=== PATIENT | male | born 1970 | race Caucasian/White ===

== ENCOUNTER 2019-12-31 19:36 | Inpatient (IN) | payer BC, OTHER ==
--- OUTSIDE RECORDS SUMMARY | 2019-12-31 19:38 | XMS ---
:1970 Author Organization [facility] Support Name Relationship Address Phone [facility] Unavailable [address] [place] [address] SHEBA SANTILLAN [address] [place] [address] Re-disclosure Warning The records that you are about to access may contain information from federally- assisted alcohol or drug abuse programs. If such information is present, then the following federally mandated warning applies: This information has been disclosed to you from records protected by federal confidentiality rules (42 CFR part 2). The federal rules prohibit you from making any further disclosure of this information unless further disclosure is expressly permitted by the written consent of the person to whom it pertains or as otherwise permitted by 42 CFR part 2. A general authorization for the release of medical or other information is NOT sufficient for this purpose. The Federal rules restrict any use of the information to criminally investigate or prosecute any alcohol or drug abuse patient.The records that you are about to access may contain highly sensitive health information, the redisclosure of which is protected by Article 27-F of the [facility] Public Health law. If you continue you may haveaccess to information: Regarding HIV / AIDS; Provided by facilities licensed or operated by the [facility] Office of Mental Health; or Provided by the [facility] Office for People With Developmental Disabilities. If such information is present, then the following [facility] mandated warning applies: This information has been disclosed to you from confidential records which are protected by state law. State law prohibits you from making any further disclosure of this information without the specific written consent of the person to whom it pertains, or as otherwise permitted by law. Any unauthorized further disclosure in violation of state law may result in a fine or long-term sentence or both. A general authorization for the release of medical or other information is NOT sufficient authorization for further disclosure. Insurance Providers Payer name Policy type Policy ID Covered Covered alliance party's Policy P rama / Coverage alliance party ID relationship to Ovalle Inf ormation type ovalle [place] [id number] [place] [id number] [place] 37 E[place] Results ID Date Data Source [id number] 12/28/2019 08:15:00 PM EDT [facility] Name Value Range Interpretation Code Description Data Maame rce(s) Supporting Document(s ) SARS-CoV-2 [facility] N gene Resp Ql KB+probe This lab was ordered by [facility] and reported by [facility]. ID Date Data Source [id number] 12/28/2019 01:08:00 PM EDT [facility] Name Value Range Interpretation Description Data Sup porting Code Source(s) Document(s ) 2019 Novel [facility] Coronavirus RNA Interpretation Unspecified Specimen Qualitative KB Probe Detection This lab was ordered by [id number] and reported by [facility]. Procedure
[2019-12-31 20:34] VITALS: BMI 30.5
--- NOTE | 2019-12-31 21:10 | HP ---
CIWA Score - Admission Criteria OASAS Guidelines: Admission for Medically Managed Detox: Requires at least one of the followin. CIWA greater than 12 2. Seizures within the past 24 hours 3. Delirium tremens within the past 24 hours 4. Hallucinations within the past 24 hours 5. Acute intervention needed for co occurring medical disorder 6. Acute intervention needed for co occurring psychiatric disorder 7. Severe withdrawal that cannot be handled at a lower level of care (continued vomiting, continued diarrhea, abnormal vital signs) requiring intravenous medication and/or fluids 8. Admission ROS BHS - HPI Chief Complaint: Here because I need help to stop this cycle of use. Allergies/Adverse Reactions: Allergies Allergy/AdvReac Type Severity Reaction Status Date / Time Penicillins Allergy Verified 12/31/19 20:58 History of Present Illness: 49 yo presents as a transfer from [facility]. Was admitted on Friday12/28/19 w/ neuro changes and opiate and Xanax use disorder. Discharged today and referred for rehab. Chest X-ray @ [facility] = normal. Denies seizures. DU: 0.0 UTOX: + THC/BZO Oxycodone use since age 46. States has been taking extra for about 1 year and supplementing prescription. Xanax use x 1 month - non prescribed. Alcohol - Socially - 2 drinks/week Denies Nicotine use. PMHx: HTN, elevated cholesterol, hip pain MHHx: Anxiety, Depression. Sees a MH Provider - has a new appt post discharge. Shx: Domiciled. Employed. Denies legal issues. Patient Name: Neo Banuelos Date: 1970 Address: [address] [place] [address] Sex: Male Rx Written Rx Dispensed Drug Quantity Days Supply Prescriber Name Payment Method Dispenser 12/22/2019 12/23/2019 oxycodone-acetaminophen 7.5-325 mg tablet 60 30 Gary Richards MD Insurance [facility] #[id number] 11/19/2019 11/23/2019 oxycodone-acetaminophen 7.5-325 mg tablet 60 30 Tomás Ortega MD Insurance [facility] #[id number] 10/25/2019 10/25/2019 oxycodone-acetaminophen 7.5-325 mg tablet 60 30 Gary Richards MD Insurance [facility] #[id number] 09/22/2019 09/27/2019 oxycodone-acetaminophen 7.5-325 mg tablet 60 30 Susie, Gary Fuentes MD Insurance [facility] #[id number] 09/22/2019 09/23/2019 lorazepam 1 mg tablet 7 7 CadenStef MD Insurance [facility] #[id number] 08/27/2019 08/27/2019 oxycodone-acetaminophen 7.5-325 mg tablet 60 30 Susie, Gary Fuentes MD Insurance [facility] #[id number] 07/29/2019 07/29/2019 oxycodone-acetaminophen 7.5-325 mg tablet 60 30 Susie, Gary Fuentes MD Insurance [facility] #[id number] 07/29/2019 07/29/2019 androderm 4 mg/24hr patch 30 30 Susie, Gary Fuentes MD Insurance [facility] #[id number] 06/30/2019 06/30/2019 oxycodone-acetaminophen 7.5-325 mg tablet 60 30 Susie, Gary Fuentes MD Insurance [facility] #[id number] 06/03/2019 06/03/2019 oxycodone-acetaminophen 7.5-325 mg tablet 60 30 Susie, Gary Fuentes MD Insurance [facility] #[id number] 06/03/2019 06/03/2019 androderm 4 mg/24hr patch 30 30 Susie, Gary Fuentes MD In [facility] #[id number] 05/24/2019 05/27/2019 lorazepam 1 mg tablet 7 7 CadenStef MD Other [facility] #[id number] 05/05/2019 05/05/2019 oxycodone-acetaminophen 7.5-325 mg tablet 60 30 Susie, Gary Fuentes MD Other [facility] #[id number] 04/05/2019 04/05/2019 oxycodone-acetaminophen 7.5-325 mg tablet 60 30 Susie, Gary Fuentes MD Other [facility] #[id number] 04/05/2019 04/05/2019 androderm 4 mg/24hr patch 30 30 Susie, Gary Fuentes MD Other [facility] #[id number] 03/04/2019 03/04/2019 oxycodone-acetaminophen 7.5-325 mg tablet 60 30 Susie, Gary Fuentes MD Other [facility] #[id number] 03/04/2019 03/04/2019 androderm 4 mg/24hr patch 30 30 Susie, Gary Fuentes MD Other [facility] #[id number] 02/03/2019 02/03/2019 oxycodone-acetaminophen 7.5-325 mg tablet 60 30 Gary Richards MD Other [facility] #[id number] 02/03/2019 02/03/2019 androderm 4 mg/24hr patch 30 30 Gary Richards MD Other [facility] #[id number] 01/19/2019 01/24/2019 lorazepam 1 mg tablet 7 7 Stef Negrete MD Insurance [facility] #[id number] 01/04/2019 01/05/2019 oxycodone-acetaminophen 7.5-325 mg tablet 60 30 Gary Richards MD Insurance [facility] #[id number] 01/04/2019 01/05/2019 androderm 4 mg/24hr patch 30 30 Gary Richards MD Insurance [facility] #[id number] Exam Limitations: No Limitations - Ebola screening Have you traveled outside of the country in the last 21 days: No (Neg COVID 12/28/19) Have you had contact with anyone from an Ebola affected area: No Have you been sick,other than usual withdrawal symptoms: No Do you have a fever: No - Review of Systems Constitutional: Changes in sleep (Difficulty falling and staying asleep.) EENT: reports: Blurred Vision Respiratory: reports: No Symptoms reported Cardiac: reports: No Symptoms Reported GI: reports: No Symptoms Reported : reports: No Symptoms Reported Musculoskeletal: reports: Joint Pain ((R) hip achy/sharp pain x years. Current pain level is a "3-4") Integumentary: reports: Bruising (from IV while in hospital) Neuro: reports: No Symptoms reported Endocrine: reports: No Symptoms Reported Hematology: reports: No Symptoms Reported Psychiatric: reports: Mood/Affect Appropiate, Orientated x3, Anxious, Depressed (Denies thoughts of harming self or others) Patient History - PPD History Previous Implant?: No Implanted On Prior [facility] Admission?: No PPD to be Administered?: Yes - Smoking Cessation Smoking history: Never smoked - Substance & Tx. History Hx Alcohol Use: No Hx Substance Use: Yes Substance Use Type: Opiates, Tranquilizers (Xanax) Hx Substance Use Treatment: No (Has failed attempts at stopping on own.) Admission Physical Exam BHS - Vital Signs Vital Signs: Vital Signs - 24 hr 12/31/19 20:31 Temperature 97.3 F L Pulse Rate 97 H Respiratory 19 Rate Blood Pressure 127/87 - Physical General Appearance: Yes: Nourished, Obese, Anxious HEENTM: Yes: EOMI, Hearing grossly Normal, Normocephalic, LITZY (Pupils = 5 mm), Pharynx Normal Respiratory: Yes: Lungs Clear, Normal Breath Sounds, No Respiratory Distress Neck: Yes: No masses,lesions,Nodules, Supple Breast: Yes: Breast Exam Deferred Cardiology: Yes: Regular Rhythm, Regular Rate, S1, S2 Abdominal: Yes: Normal Bowel Sounds, Non Tender, Soft, Protuberent (Increased abdominal adiposity) Genitourinary: Yes: Within Normal Limits Back: Yes: Normal Inspection Musculoskeletal: Yes: full range of Motion, Gait Steady Extremities: Yes: Normal Capillary Refill Neurological: Yes: stationary steam engineer II-XII NML intact, Fully Oriented, Alert, Motor Strength 5/5, Normal Mood/Affect Integumentary: Yes: Normal Color, Warm Lymphatic: Yes: Within Normal Limits - Diagnostic (1) Moderate opioid dependence in early remission Current Visit: Yes Status: Acute (2) 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 Current Visit: Yes Status: Acute (3) HTN (hypertension) Current Visit: Yes Status: Chronic Qualifiers: Hypertension type: essential hypertension Qualified Code(s): I10 - Essential (primary) hypertension (4) Chronic hip pain Current Visit: Yes Status: Chronic Qualifiers: Laterality: right Qualified Code(s): M25.551 - Pain in right hip; G89.29 - Other chronic pain (5) Elevated lipids Current Visit: Yes Status: Chronic Cleared for Admission BHS - Detox or Rehab Claeared for Rehab Admission: Yes Breathalyzer - Breathalyzer Breathalyzer: 0 Urine Drug Screen - Test Device Lot number: [id number] Expiration date: 06/29/21 - Control Is test valid?: Yes - Results Drug screen NEGATIVE: No Urine drug screen results: THC-Marijuana, BZO-Benzodiazepines Inpatient Rehab Admission - Rehab Decision to Admit Inpatient rehab admission?: Yes - Initial Determination Are CD services needed?: Yes Free of communicable disease: Yes Not in need of hospitalization: Yes - Rehab Admission Criteria Previous failed treatment: Yes Poor recovery environment: Yes Comorbidities: Yes Lacks judgement: No Patient is meeting Inpatient Rehab admission criteria:: Yes
[2019-12-31] MEDS ORDERED: MELATONIN 5 MG TABLETS PO SCH (22:00)
[2019-12-31] MEDS ORDERED: guaiFENesin 200 MG/10 ML 10 ML UNIT-DOSE CUPS PO PRN (22:40)
[2019-12-31] MEDS ORDERED: MAGNESIUM CITRATE 300 ML BOTTLE PO PRN (22:40)
[2019-12-31] MEDS ORDERED: ACETAMINOPHEN 325 MG TABLET (FP) PO PRN (22:40)
[2019-12-31] MEDS ORDERED: NICOTINE POLACRILEX 2 MG GUM BC PRN (22:40)
[2019-12-31] MEDS ORDERED: MAGNESIUM HYDROX 2400MG/30ML ORAL SUSPENSION 30 ML CUP PO PRN (22:40)
[2019-12-31] MEDS ORDERED: MAG HYDROX/AL HYDROX/SIMETH 30 ML UNIT-DOSE CUP PO PRN (22:40)
[2019-12-31] MEDS ORDERED: LOPERAMIDE HCL 2 MG CAPSULE PO PRN (22:40)
[2019-12-31] MEDS ORDERED: P-EPHED 60MG/TRIPROLIDI 2.5MG TABLET PO PRN (22:40)
--- OUTSIDE RECORDS SUMMARY | 2019-12-31 22:52 | XMS ---
:1970 Author Organization [facility] Support Name Relationship Address Phone [facility] Unavailable [address] [phone] [place] [address] SHEBA SANTILLAN [address] [place] [address] Re-disclosure Warning The records that you are [...] is protected by Article 27-F of the [facility] Public Health law. If you continue you may haveaccess to information: Regarding HIV / AIDS; Provided by facilities licensed or operated by the [facility] Office of Mental Health; or Provided by the [facility] Office for People With Developmental Disabilities. If such information is present, then the following [facility] mandated warning applies: This information has been [...] law may result in a fine or skilled nursing sentence or both. A general authorization for the release of medical or other information is NOT sufficient authorization for further disclosure. Insurance Providers Payer name Policy type Policy ID Covered Covered democrat's Policy P raam / Coverage democrat ID relationship to Ovalle Inf ormation type ovalle [place] [id number] [place] [id number] [place] Results ID Date Data Source [id number] 12/28/2019 08:15:00 PM EDT [facility] Name Value Range Interpretation Code Description Data Maame rce(s) Supporting Document(s ) SARS-CoV-2 [facility] N gene Resp Ql KB+probe This lab was ordered by [facility] and reported by [facility]. ID Date Data Source [id number] 12/28/2019 01:08:00 PM EDT [facility] Name Value Range Interpretation Description Data Sup porting Code Source(s) Document(s ) 2019 Novel [facility] Coronavirus RNA Interpretation Unspecified Specimen Qualitative KB Probe Detection This lab was ordered by [facility]-[id number] and reported by [facility]. Procedure
[2019-12-31] MEDS ORDERED: TUBERCULIN PPD 5 TU/0.1ML VIAL ID ONE (23:34)
[2020-01-01] MEDS: PRENATAL VITAMINS W/ FOLIC ACID TABLET (FP) PO SCH (10:07)
[2020-01-01] MEDS: LISINOPRIL 20 MG TABLET PO SCH (10:08)
[2020-01-01 12:02] LABS: HEMATOCRIT 42.8 % (35.4-49); HEMOGLOBIN 14.8 GM/dL (11.7-16.9); MCH 30.8 pg (25.7-33.7); MCHC 34.5 g/dl (32.0-35.9); MEAN CELL VOLUME 89.3 fl (80-96); MEAN PLT VOLUME 8.3 fl (7.5-11.1); PLATELET COUNT 306 K/MM3 (134-434); RBC 4.79 M/mm3 (4.00-5.60); RDW 12.9 % (11.9-15.9); WHITE BLOOD COUNT 8.3 K/mm3 (4.0-10.0)
[2020-01-01 12:07] LABS: ALBUMIN 2.3 g/dl (3.4-5.0); BILIRUBIN,TOTAL 1.2 mg/dL (0.2-1); BLOOD UREA NITROGEN 25.5 mg/dL (7-18); CALCIUM 9.5 mg/dL (8.5-10.1); CREATININE 1.3 mg/dL (0.55-1.3); POTASSIUM 3.9 mmol/L (3.5-5.1); TOT PROT 7.4 g/dl (6.4-8.2)
--- NOTE | 2020-01-01 12:24 | CONSULT ---
[facility] Psychiatric Consult - Data Date of interview: 01/01/20 Admission source: [facility] Identifying data: Patient is a 49 year old male, father of two, domiciled, andemployed ([employer]). This is patient's first admission to rehab at [facility]. Patient admitted to for opiate dependence. Substance Abuse History: History of opioid dependence. Medical History: Patient denies history of psychiatric hospitalizations and suicide attempt. Psychiatric History: Patient's first psychiatric contact was in his early 40's after seeing a psychiatrist in [place] for therapy due to marital issues. No medications were prescribed, only therapy was provided. Patient discontinued treatment after several years and then saw Dr. Negrete, a psychiatrist in [place], [place] who he continues to see today. Mr. Banuelos states that he is diagnosed with depression and anxiety and is currently treated with cymbalta 60mg daily. Patient denies history of psychiatric hospitalizations and suicide attempt. At present patient reports stable mood but is experiencing difficulty sleeping. Physical/Sexual Abuse/Trauma History: denies. Mental Status Exam - Mental Status Exam Alert and Oriented to: Time, Place, Person Cognitive Function: Good Patient Appearance: Well Groomed Mood: Hopeful Affect: Appropriate Patient Behavior: Appropriate, Cooperative Speech Pattern: Appropriate Voice Loudness: Normal Thought Process: Intact, Goal Oriented Thought Disorder: Not Present Hallucinations: Denies Suicidal Ideation: Denies Homicidal Ideation: Denies Insight/Judgement: Poor Sleep: Poorly Appetite: Fair Muscle strength/Tone: Normal Gait/Station: Normal Psychiatric Findings - Problem List ([place] 1, 2,3) (1) Opioid dependence Current Visit: Yes Status: Acute (2) Sedative hypnotic or anxiolytic dependence Current Visit: Yes Status: Acute (3) History of depression Current Visit: Yes Status: Chronic (4) Anxiety disorder Current Visit: Yes Status: Chronic - Initial Treatment Plan Initial Treatment Plan: Psychoeducation provided. Rehab in progress. 1) Will d/c Melatonin 5mg HS. Will order Cymbalta 60mg + Melatonin 10mg HS. Benefits and side effects discussed. Verbal consent given.
[2020-01-01] MEDS: DULoxetine HCL 30 MG CAPSULE.DR PO SCH (13:33)
[2020-01-01] MEDS: IBUPROFEN 400 MG TABLET (FP) PO PRN (17:49)
[2020-01-01] MEDS: THIAMINE HCL 100 MG TABLET (FP) PO SCH (21:03)
[2020-01-01] MEDS: ATORVASTATIN CA 10 MG TABLET (FP) PO SCH (21:03)
[2020-01-01] MEDS: MELATONIN 5 MG TABLETS PO SCH (21:03)
[2020-01-01] MEDS ORDERED: PATIENT'S OWN MEDICATION (NON-FORMULARY) (Simvastatin [Simvastatin] 20 MG) PO SCH (22:00)
[2020-01-02] MEDS: IBUPROFEN 400 MG TABLET (FP) PO PRN ×3 (07:03→21:36)
[2020-01-02] MEDS: DULoxetine HCL 30 MG CAPSULE.DR PO SCH (10:03)
[2020-01-02] MEDS: LISINOPRIL 20 MG TABLET PO SCH (10:03)
[2020-01-02] MEDS: PRENATAL VITAMINS W/ FOLIC ACID TABLET (FP) PO SCH (10:03)
[2020-01-02 11:05] LABS: PH,URINE 5.5 (5.0-8.0); URINE APPEARANCE Clear; URINE BILIRUBIN Negative (NEGATIVE); URINE COLOR Yellow; URINE GLUCOSE (UA) Negative (NEGATIVE); URINE KETONE Negative (NEGATIVE); URINE LEUK ESTERASE Negative (NEGATIVE); URINE NITRITE Negative (NEGATIVE); URINE PROTEIN 2+ (NEGATIVE); URINE UROBILINOGEN 0.2 mg/dL (0.2-1.0)
[2020-01-02] MEDS: ATORVASTATIN CA 10 MG TABLET (FP) PO SCH (21:36)
[2020-01-02] MEDS: THIAMINE HCL 100 MG TABLET (FP) PO SCH (21:36)
[2020-01-02] MEDS: MELATONIN 5 MG TABLETS PO SCH (21:36)
[2020-01-03] MEDS: IBUPROFEN 400 MG TABLET (FP) PO PRN ×3 (06:41→21:46)
[2020-01-03] MEDS: DULoxetine HCL 30 MG CAPSULE.DR PO SCH (10:38)
[2020-01-03] MEDS: LISINOPRIL 20 MG TABLET PO SCH (10:38)
[2020-01-03] MEDS: PRENATAL VITAMINS W/ FOLIC ACID TABLET (FP) PO SCH (10:39)
--- NOTE | 2020-01-03 10:55 | PN ---
[facility] Progress Note Note: Pt is a 49 y/o male with a hx of ZORAIDA-sedatives and opiates admitted to rehab through [facility] on 12/31/19. Reports has PCP Dr. Gary Richards @ [facility], [address] [place] [address]. PMHx:C-PAP Machine(self care per pt's verbal hx, In use for 2 yrs+); HTN, HLD Vital Signs - 24 hr 01/02/20 01/02/20 01/03/20 14:30 21:52 07:59 Temperature 97.5 F L Pulse Rate 79 Respiratory 18 Rate Blood Pressure 145/90 O2 Sat by Pulse 97 95 99 Oximetry (%) Laboratory Tests 12/31/19 01/01/20 01/01/20 21:00 07:30 07:30 WBC 8.3 RBC 4.79 Hgb 14.8 Hct 42.8 MCV 89.3 MCH 30.8 MCHC 34.5 RDW 12.9 Plt Count 306 MPV 8.3 Sodium 141 Potassium 3.9 Chloride 105 Carbon Dioxide 30 Anion Gap 7 L BUN 25.5 H Creatinine 1.3 Est GFR (CKD-EPI)AfAm 74.78 Est GFR (CKD-EPI)NonAf 64.52 Random Glucose 122 H Calcium 9.5 Total Bilirubin 1.2 H AST 14 L ALT 37 Alkaline Phosphatase 77 Total Protein 7.4 Albumin 2.3 L Urine Color Urine Appearance Urine pH Ur Specific [place] Urine Protein Urine Glucose (UA) Urine Ketones Urine Blood Urine Nitrite Urine Bilirubin Urine Urobilinogen Ur Leukocyte Esterase Syphilis Serology SARS-CoV-2 (PCR) Negative 01/01/20 01/02/20 07:30 07:35 WBC RBC Hgb Hct MCV MCH MCHC RDW Plt Count MPV Sodium Potassium Chloride Carbon Dioxide Anion Gap BUN Creatinine Est GFR (CKD-EPI)AfAm Est GFR (CKD-EPI)NonAf Random Glucose Calcium Total Bilirubin AST ALT Alkaline Phosphatase Total Protein Albumin Urine Color Yellow Urine Appearance Clear Urine pH 5.5 Ur Specific [place] >= 1.030 Urine Protein 2+ H Urine Glucose (UA) Negative Urine Ketones Negative Urine Blood Negative Urine Nitrite Negative Urine Bilirubin Negative Urine Urobilinogen 0.2 Ur Leukocyte Esterase Negative Syphilis Serology Non-reactive SARS-CoV-2 (PCR) Alert o x 3 nad oob ambulating with steady gait extremities;no edema; skin intact. new rehab pt Increase po fluids maintain safety
[2020-01-03] MEDS: THIAMINE HCL 100 MG TABLET (FP) PO SCH (21:45)
[2020-01-03] MEDS: MELATONIN 5 MG TABLETS PO SCH (21:45)
[2020-01-03] MEDS: ATORVASTATIN CA 10 MG TABLET (FP) PO SCH (21:45)
[2020-01-04] MEDS: IBUPROFEN 400 MG TABLET (FP) PO PRN (06:56)
[2020-01-04 07:16] VITALS: BP 133/95; PULSE 18; TEMP 98
[2020-01-04] MEDS: PRENATAL VITAMINS W/ FOLIC ACID TABLET (FP) PO SCH (10:49)
[2020-01-04] MEDS: LISINOPRIL 20 MG TABLET PO SCH (10:49)
[2020-01-04] MEDS: DULoxetine HCL 30 MG CAPSULE.DR PO SCH (10:49)
--- NOTE | 2020-01-04 16:08 | DS ---
[facility] Rehab Discharge Summary - [facility] Rehab Discharge Summary Admission Date: 12/31/19 Discharge Date: 01/04/20 - History Present History: Opioid dependence, Sedative dependence Pertinent Past History: Use of C-PAP Machine HTN HLD Chronic LBP - Discharge Physical Exam Vital Signs: Vital Signs Temperature 98.0 F 01/04/20 05:57 Pulse Rate 18 L 01/04/20 05:57 Respiratory Rate 75 H 01/04/20 05:57 Blood Pressure 133/95 01/04/20 05:57 O2 Sat by Pulse Oximetry (%) 97 01/04/20 05:57 General;WDWN male, Alert o x 3, nad, denies s/h/i Cardiac:s1 s2,rrr lungs:ctab abdomen:soft, +bs,nt,nd MSK/Skin:Active FROM, all limbs; oob ambulating with steady gait; no edema, skin, warm, dry and intact. Pertinent Admission Physical Exam Findings: Laboratory Tests 12/31/19 01/01/20 01/01/20 21:00 07:30 07:30 WBC 8.3 RBC 4.79 Hgb 14.8 Hct 42.8 MCV 89.3 MCH 30.8 MCHC 34.5 RDW 12.9 Plt Count 306 MPV 8.3 Sodium 141 Potassium 3.9 Chloride 105 Carbon Dioxide 30 Anion Gap 7 L BUN 25.5 H Creatinine 1.3 Est GFR (CKD-EPI)AfAm 74.78 Est GFR (CKD-EPI)NonAf 64.52 Random Glucose 122 H Calcium 9.5 Total Bilirubin 1.2 H AST 14 L ALT 37 Alkaline Phosphatase 77 Total Protein 7.4 Albumin 2.3 L Urine Color Urine Appearance Urine pH Ur Specific [place] Urine Protein Urine Glucose (UA) Urine Ketones Urine Blood Urine Nitrite Urine Bilirubin Urine Urobilinogen Ur Leukocyte Esterase Syphilis Serology SARS-CoV-2 (PCR) Negative 01/01/20 01/02/20 07:30 07:35 WBC RBC Hgb Hct MCV MCH MCHC RDW Plt Count MPV Sodium Potassium Chloride Carbon Dioxide Anion Gap BUN Creatinine Est GFR (CKD-EPI)AfAm Est GFR (CKD-EPI)NonAf Random Glucose Calcium Total Bilirubin AST ALT Alkaline Phosphatase Total Protein Albumin Urine Color Yellow Urine Appearance Clear Urine pH 5.5 Ur Specific [place] >= 1.030 Urine Protein 2+ H Urine Glucose (UA) Negative Urine Ketones Negative Urine Blood Negative Urine Nitrite Negative Urine Bilirubin Negative Urine Urobilinogen 0.2 Ur Leukocyte Esterase Negative Syphilis Serology Non-reactive SARS-CoV-2 (PCR) - Treatment Discharge Condition: Discharge condition good, Rehabilitated safely, Outpatient referral accepted Hospital Course: Pt is a 49 y/o male admitted to rehab after hospitalization at [facility] for neurological changes due to drug use. Pt has [facility] Outpatient program where he plans to get back so he can return to his family and work. Pt is discharging back to [facility] to follow up with ELAINA srinivasan. - Medication Discharge Medications: Ambulatory Orders Duloxetine HCl [Cymbalta] 60 mg PO DAILY 12/31/19 Lisinopril 20 mg PO DAILY 12/31/19 Simvastatin 20 mg PO HS 12/31/19 - Medication-Assisted Treatment (MAT) Medication-Assisted Treatment (MAT): No - Discharge Instructions Diet, activity, other medical instructions: Diet:LUIS/Low fat Activity:oob ad jessica Other medical instructions:follow up with your primary care provider, Dr. Gary Richards for medical management. 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 Status: Chronic (2) Opioid dependence Status: Chronic Qualifiers: Substance use status: uncomplicated Qualified Code(s): F11.20 - Opioid dependence, uncomplicated (3) Chronic hip pain Status: Chronic Qualifiers: Laterality: right Qualified Code(s): M25.551 - Pain in right hip; G89.29 - Other chronic pain (4) Elevated lipids Status: Chronic (5) HTN (hypertension) Status: Chronic Qualifiers: Hypertension type: essential hypertension Qualified Code(s): I10 - Essential (primary) hypertension (6) History of depression Status: Chronic - Follow-up Referral Minutes to complete discharge: 20 - AMA Did Patient Leave Against Medical Advice: No
== END 2020-01-04 16:05 | disposition home or self-care (01) | DRG 895 ==
LOC: YASAS 19:36 → Y5N 22:48
PROVIDERS: ADMIT Allergy & Immunology; ATTEND Allergy & Immunology
PROC: HZ42ZZZ Group Counseling for Substance Abuse Treatment, Cognitive-Behavioral (ICD-10-PCS; principal; 2019-12-31)
DX: F11.20 Opioid dependence, uncomplicated (principal); F13.20 Sedative, hypnotic or anxiolytic dependence, uncomplicated; F41.9 Anxiety disorder, unspecified; F32.9 Major depressive disorder, single episode, unspecified; I10 Essential (primary) hypertension; E78.5 Hyperlipidemia, unspecified; M25.551 Pain in right hip; M54.5 Low back pain; G89.29 Other chronic pain; Z99.89 Dependence on other enabling machines and devices; Z88.0 Allergy status to penicillin
CPT/HCPCS: 36415; 80053; 81003; 85027; 86780; C9803; U0003